=== PATIENT | female | born 1980 | race Caucasian/White ===

== ENCOUNTER → 2016-12-20 | Outpatient (CLI) | payer OTHER ==
--- NOTE | 2016-12-20 14:06 | MR ---
MR lumbar spine wo con lsp radiculopathy, pain Multiplanar, multiecho imaging of the lumbar spine was obtained without contrast on a 3 [place] magnet. REFERENCE:None. 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 Paraspinal soft tissues are otherwise unremarkable . Vertebral body height and alignment are maintained. There is no spondylolysis or spondylolisthesis. C ord signal is normal. The conus ends normally at the level of the superior endplate of L2. There is mild, diffuse facet arthropathy, most marked at L4-5. There is no significant compressive di scopathy. There is a minimal central disc displacement at L4-5 without definite neural compression. I ntervertebral foramina appear well maintained. IMPRESSION: 1. NO SIGNIFICANT COMPRESSIVE DISCOPATHY OR NEURAL COMPRESSION. 2. HORSESHOE KIDNEY. 3. MILD, DIFFUSE FACET ARTHROPATHY, MOST MARKED AT L4-5.
== END | disposition home or self-care (01) ==
LOC: RADMRIMAIN 10:48
PROVIDERS: ATTEND Psychiatry & Neurology Neurology
DX: M46.96 Unspecified inflammatory spondylopathy, lumbar region (principal)
CPT/HCPCS: 72148

== ENCOUNTER → 2017-11-25 | Outpatient (CLI) | payer OTHER ==
--- NOTE | 2017-11-25 20:03 | MR ---
Brain MRI HISTORY: Concussion with loss of consciousness, trauma and pain Multiplanar multisequence imaging through the brain No comparisons Brain signal is normal. There is no hemorrhage or hydrocephalus. There are normal vascular flow voids . Cerebellopontine angles, corpus callosum, pituitary, cervical medullary junction are normal. Proxim al cervical cord shows a focal area of low signal on sagittal image 11, this is not included on the a dditional imaging. There is no restricted diffusion. Orbits show symmetric appearance. Mucosal disease noted within the maxillary sinus, ethmoid air cells. Orbits show symmetric appearance. There may be basilar ganglia ca lcifications. IMPRESSION: No acute brain abnormality. Question signal abnormality within the cervical cord the leve l of C2, consider dedicated imaging through this region for better evaluation.
== END | disposition home or self-care (01) ==
LOC: RADMRIMAIN 18:47
PROVIDERS: ATTEND Psychiatry & Neurology Neurology
DX: S06.0X9A Concussion with loss of consciousness of unspecified duration, initial encounter (principal)
CPT/HCPCS: 70551

== ENCOUNTER → 2019-10-08 | Outpatient (CLI) | payer OTHER ==
--- NOTE | 2019-10-11 13:09 | MM ---
Reason for exam: screening (asymptomatic). Last mammogram was performed 5 years and 2 months ago. History: Family history of breast cancer in paternal grandfather at age 65. Physical Findings: A clinical breast exam by your physician is recommended on an annual basis and results should be correlated with mammographic findings. MG Screening Mammo w CAD Bilateral CC and MLO view(s) were taken. Prior study comparison: August 04, 2014, bilateral MG screening mammo w CAD. The breast tissue is heterogeneously dense. This may lower the sensitivity of mammography. No suspicious abnormality. No significant changes when compared with prior studies. ASSESSMENT: Negative, BI-RAD 1 RECOMMENDATION: Routine screening mammogram of both breasts in 1 year.
== END | disposition home or self-care (01) ==
LOC: RADMAMWWP 09:51
PROVIDERS: ATTEND Obstetrics & Gynecology
DX: Z12.31 Encounter for screening mammogram for malignant neoplasm of breast (principal)
CPT/HCPCS: 77067

== ENCOUNTER → 2021-10-22 | Outpatient (CLI) | payer OTHER ==
--- NOTE | 2021-10-24 11:04 | MM ---
Reason for exam: screening (asymptomatic). Last mammogram was performed 2 years ago. History: Family history of breast cancer in paternal grandfather at age 65. Physical Findings: A clinical breast exam by your physician is recommended on an annual basis and results should be correlated with mammographic findings. MG 3D Screening Mammo W/Cad Bilateral CC and MLO view(s) were taken. Prior study comparison: October 08, 2019, bilateral MG screening mammo w CAD. August 04, 2014, bilateral MG screening mammo w CAD. The breast tissue is extremely dense which could obscure a lesion on mammography. There is chronic nodularity in the left breast. No significant changes when compared with prior studies. ASSESSMENT: Benign, BI-RAD 2 RECOMMENDATION: Routine screening mammogram of both breasts in 1 year.
== END | disposition home or self-care (01) ==
LOC: RADMAMWWP 14:26
PROVIDERS: ATTEND Obstetrics & Gynecology
DX: Z12.31 Encounter for screening mammogram for malignant neoplasm of breast (principal); Z80.3 Family history of malignant neoplasm of breast
CPT/HCPCS: 77063; 77067

== ENCOUNTER → 2023-01-09 | Outpatient (CLI) | payer OTHER ==
--- NOTE | 2023-01-09 09:40 | MM ---
Reason for Exam: Clinical finding. Last mammogram was performed 1 year(s) and 3 month(s) ago. Patient History: Menarche at age 12. First Full-Term at age 24. Premenopausal. Paternal grandfather had breast cancer, age 65. Risk Values: Rosana 5 year model risk: 0.8%. NCI Lifetime model risk: 10.8%. Tissue Density: The breast tissue is heterogeneously dense. This may lower the sensitivity of mammography. Findings: Analyzed By CAD. Asymmetric density medial left breast becomes less defined and additional views. Appearance similar to older priors. Precautionary follow up can be performed. Otherwise, no significant change. Overall Assessment: Incomplete: need additional imaging evaluation, BI-RAD 0 Management: Diagnostic Breast Ultrasound of the left breast. Targeted to the medial half, particular attention 7:00 position at the site of patient's pain. Electronically signed and approved by: Nasim Munoz M.D. Radiologist
--- NOTE | 2023-01-09 10:25 | USB ---
Reason for Exam: Clinical finding. Patient History: Menarche at age 12. First Full-Term at age 24. Premenopausal. Paternal grandfather had breast cancer, age 65. Risk Values: Rosana 5 year model risk: 0.8%. NCI Lifetime model risk: 10.8%. Technique: Method: Targeted. Patient Position: Supine. Prior Study Comparison: 08/04/2014 Bilateral Screening Mammogram, [facility]. 10/08/2019 Bilateral Screening Mammogram, [facility]. 10/22/2021 Bilateral Screening Mammogram, [facility]. Findings: The lower inner quadrant of the left breast was scanned. Targeted ultrasound left breast lower inner quadrant 6:00 to 9:00 including the subareolar region. No solid or cystic lesion. No duct ectasia. Overall Assessment: Probably benign, BI-RAD 3 Management: Diagnostic Mammogram of the left breast in 6 months. 1. Patient should continue monthly self breast exams. 2. A clinical breast exam by your physician is recommended on an annual basis. 3. This exam should not preclude additional follow-up of suspicious palpable abnormalities. Results were given to the patient verbally at the time of exam. Electronically signed and approved by: Nasim Munoz M.D. Radiologist
== END | disposition home or self-care (01) ==
LOC: RADMAMWWP 09:01
PROVIDERS: ATTEND Obstetrics & Gynecology
DX: N64.4 Mastodynia (principal); Z80.3 Family history of malignant neoplasm of breast
CPT/HCPCS: 77066; 76642; G0279; 77062

== ENCOUNTER → 2023-07-14 | Outpatient (CLI) | payer OTHER ==
--- NOTE | 2023-07-14 14:18 | MM ---
Reason for Exam: Clinical finding. Last screening mammogram was performed 6 month(s) ago. Patient History: Menarche at age 12. First Full-Term at age 24. Premenopausal. Paternal grandfather had breast cancer, age 65. Paternal aunt had breast cancer, age 66. Risk Values: Rosana 5 year model risk: 0.9%. NCI Lifetime model risk: 10.7%. Prior Study Comparison: 10/08/2019 Bilateral Screening Mammogram, [facility]. 10/22/2021 Bilateral Screening Mammogram, [facility]. 01/09/2023 Bilateral MG 3D diag mammo w/cad JAIRO, [facility]. Tissue Density: Left: There are scattered fibroglandular densities. Findings: Analyzed By CAD. No new suspicious masses, calcifications or distortions. No correlate with patient's pain. No new suspicious masses, calcifications or distortions. Nothing to correlate with patient's pain. Overall Assessment: Incomplete: need additional imaging evaluation, BI-RAD 0 Management: Diagnostic Breast Ultrasound of the left breast. Results were given to the patient verbally at the time of exam. Patient should continue monthly self-breast exams. A clinical breast exam by your physician is recommended on an annual basis. This exam should not preclude additional follow-up of suspicious palpable abnormalities. Note on Rosana scores and lifetime risk: 1. A Rosana score greater than 3% is considered moderate risk. If this is the case, consider specialist referral to assess eligibility for a risk reducing agent. 2. If overall lifetime risk for the development of breast cancer is 20% or higher, the patient may qualify for future screening with alternating mammogram and breast MRI. Electronically signed and approved by: Chidi Cui DO
--- NOTE | 2023-07-14 14:30 | USB ---
Reason for Exam: Clinical finding. Patient History: Menarche at age 12. First Full-Term at age 24. Premenopausal. Paternal grandfather had breast cancer, age 65. Paternal aunt had breast cancer, age 66. Risk Values: Rosana 5 year model risk: 0.9%. NCI Lifetime model risk: 10.7%. Technique: Method: Targeted. Prior Study Comparison: 10/08/2019 Bilateral Screening Mammogram, [facility]. 10/22/2021 Bilateral Screening Mammogram, [facility]. 01/09/2023 Bilateral MG 3D diag mammo w/cad JAIRO, [facility]. Findings: The lower outer quadrant of the left breast and the retroareolar of the left breast were scanned. Technique utilized:US breast limited LT Image; Ultrasound imaging of: Area of concern, retroareolar region and axilla. Small anechoic cyst at 3:00 biopsy reasonable measuring 4 x 5 x 4 mm. Thin septations are present. Overall Assessment: Benign, BI-RAD 2 Management: Screening Mammogram of both breasts in 1 year. Clinical management for complicated cyst which may be the source of patient's pain. A clinical breast exam by your physician is recommended on an annual basis and results should be correlated with mammographic findings. This exam should not preclude additional follow-up of suspicious palpable abnormalities. Results were given to the patient verbally at the time of exam. Electronically signed and approved by: Chidi Cui DO
== END | disposition home or self-care (01) ==
LOC: RADMAMWWP 13:36
PROVIDERS: ATTEND Surgery
DX: R92.322 Mammographic fibroglandular density, left breast (principal); Z80.3 Family history of malignant neoplasm of breast
CPT/HCPCS: 77065; 76642; G0279; 77061

== ENCOUNTER → 2023-11-01 | Outpatient (CLI) | payer OTHER ==
[2023-11-01 22:52] LABS: HCT 44.1 % (37.2-46.3); HGB 13.8 g/dL (12.0-15.0); MCH 26.8 pg (27.0-32.0); MCHC 31.3 g/dL (32.0-37.0); MCV 85.8 FL (80.0-97.0); Mean Platelet Volume 11.3 FL (9.5-12.2); NRBC Per 100 WBC 0 X 10*3/uL (0.00-0.01); Platelet Count 343 X 10*3/uL (140-440); RBC 5.14 X 10*6/uL (4.10-5.20); RDW 13.2 % (11.5-14.5); WBC 8.38 X 10*3/uL (4.50-10.00)
[2023-11-01 23:09] LABS: ALT 26 U/L (8-44); AST 12 U/L (13-35); Albumin 4.9 g/dL (3.8-4.9); Albumin/Globulin Ratio 2.04 Ratio (1.60-3.17); Alkaline Phosphatase 95 U/L (41-126); Blood Urea Nitrogen 9.8 mg/dL (9.0-27.0); Calcium 9.9 mg/dL (8.7-10.3); Carbon Dioxide 26.6 mmol/L (21.6-31.8); Chloride 103 mmol/L (96-109); Globulin 2.4 g/dL (1.6-3.3); Glucose 104 mg/dL (70-110); Potassium 4.3 mmol/L (3.5-5.5); Sodium 141 mmol/L (135-145); T4, Free (Free Thyroxine) 1.95 ng/dL (0.80-1.80); Total Bilirubin 0.7 mg/dL (0.3-1.2); Total Protein 7.3 g/dL (6.2-8.2)
== END | disposition home or self-care (01) ==
LOC: LABWHC1 11:04
PROVIDERS: ATTEND Internal Medicine
DX: E05.90 Thyrotoxicosis, unspecified without thyrotoxic crisis or storm (principal)
CPT/HCPCS: 36415; 80053; 84439; 84443; 84481; 85027

== ENCOUNTER → 2025-02-10 | Outpatient (CLI) | payer OTHER ==
--- NOTE | 2025-02-10 08:32 | MM ---
Reason for Exam: Screening (asymptomatic). Last mammogram was performed 2 year(s) and 1 month(s) ago. Patient History: Menarche at age 12. First Full-Term at age 24. Premenopausal. Paternal grandfather had breast cancer, age 65. Paternal aunt had breast cancer, age 66. Risk Values: Rosana 5 year model risk: 0.9%. NCI Lifetime model risk: 10.6%. Prior Study Comparison: 10/22/2021 Bilateral Screening Mammogram, [facility]. 01/09/2023 Bilateral MG 3D diag mammo w/cad JAIRO, [facility]. 07/14/2023 Left MG 3D diag mammo w/cad LT, [facility]. Tissue Density: The breasts are heterogeneously dense, which may obscure small masses. Findings: Analyzed By CAD. Right breast: There is no suspicious group of microcalcifications or new suspicious mass. Left breast: There is no suspicious group of microcalcifications or new suspicious mass. Overall Assessment: Negative, BI-RAD 1 Management: Screening Mammogram of both breasts in [address] [facility] will attempt to contact patient to return for supplemental views and ultrasound if indicated. Patient should continue monthly self-breast exams. A clinical breast exam by your physician is recommended on an annual basis. This exam should not preclude additional follow-up of suspicious palpable abnormalities. Note on Rosana scores and lifetime risk: 1. A Rosana score greater than 3% is considered moderate risk. If this is the case, consider specialist referral to assess eligibility for a risk reducing agent. 2. If overall lifetime risk for the development of breast cancer is 20% or higher, the patient may qualify for future screening with alternating mammogram and breast MRI. [facility], , 02/10/2025 8:29 AM. Electronically signed and approved by: Chidi Cui DO
== END | disposition home or self-care (01) ==
LOC: RADMAMWWP 08:12
PROVIDERS: ATTEND Obstetrics & Gynecology
DX: Z12.31 Encounter for screening mammogram for malignant neoplasm of breast (principal); R92.333 Mammographic heterogeneous density, bilateral breasts; Z80.3 Family history of malignant neoplasm of breast
CPT/HCPCS: 77067